=== PATIENT | male | born 1965 | race African-American/Black ===

== ENCOUNTER → 2021-05-05 | Outpatient (CLI) | payer MEDICARE ==
[~2021-05-05] MED LIST: HYDR-2997; HYDR1TAB PO; NAPR-243 PO
--- NOTE | 2021-05-05 10:13 | Diagnostic Imaging Report ---
CT Lung Screening INDICATION: 30 pack year smoking history. Current smoker. TECHNIQUE: Noncontrast, low-dose CT imaging performed according to the lung cancer screening protocol. Auto Exposure Controls were utilize during the CT exam to meet ALARA standards for radiation dose reduction. COMPARISON: Chest radiograph 11/08/2008. FINDINGS: Calcified granuloma in the right upper lobe. Calcified right hilar lymph nodes. Moderate centrilobular emphysema and diffuse bronchial wall thickening. No suspicious pulmonary nodule or mass. No endobronchial lesions. No lymphadenopathy. No pleural effusion or pneumothorax. Normal heart size. No pericardial effusion. No acute osseous findings. Calcified granulomas in the spleen. IMPRESSION: 1. No suspicious pulmonary nodule or mass. Recommend continue annual screening with low-dose chest CT in 12 months. 2. Moderate emphysematous changes. 3. Evidence of prior granulomatous infection. LUNG-RADS CATEGORY: 1 MODIFIER: None Dictated by: Dictated on workstation # [id number]
== END ==
LOC: RAD 09:24
PROVIDERS: ATTEND Nurse Practitioner
DX: Z12.2 Encounter for screening for malignant neoplasm of respiratory organs (principal); J43.9 Emphysema, unspecified; F17.210 Nicotine dependence, cigarettes, uncomplicated
CPT/HCPCS: 71271

== ENCOUNTER → 2021-06-09 | Outpatient (CLI) | payer MEDICARE ==
[~2021-06-09] MED LIST changes: +RT-ALBUTEROL SULF 2.5 MG/3 ML PRE-MIX VIAL INH ONE
== END ==
LOC: RT 09:15
PROVIDERS: ATTEND Nurse Practitioner
DX: J43.9 Emphysema, unspecified (principal)
CPT/HCPCS: 94060; 94726; 94729

== ENCOUNTER → 2021-06-27 | Outpatient (CLI) | payer MEDICARE ==
[~2021-06-27] MED LIST changes: -RT-ALBUTEROL SULF 2.5 MG/3 ML PRE-MIX VIAL INH ONE
== END ==
LOC: CARD 08:30
PROVIDERS: ATTEND Physician Assistant
DX: I35.1 Nonrheumatic aortic (valve) insufficiency (principal); I11.9 Hypertensive heart disease without heart failure
CPT/HCPCS: 93306

== ENCOUNTER → 2021-12-15 | Outpatient (CLI) | payer MEDICARE ==
[2021-12-15 10:35] VITALS: BP 132/90
--- NOTE | 2021-12-15 12:42 | Cardiology Stress Test Report ---
Stress Test Report Date of Procedure/Referring: Date of Procedure: Dec 15, 2021 [facility] Admitting Physician Admitting Physician: Attending Physician: Lyric Pacheco Indications: Baseline Heart Rate: 69 Baseline Blood Pressure: Blood Pressure Systolic: 132 Blood Pressure Diastolic: 90 Baseline EKG: Baseline EKG: NSR Summary/Conclusion: Summary: In summary, the patient started exercising with a baseline heart rate, blood pressure and EKG mentioned above Patient was able to exercise for a total of 6 minutes on Dexter protocol, METs 7.3 Maximum heart rate 146 Maximum blood pressure 185/72 Stress EKG, Minimal nondiagnostic changes Recovery EKG , Return to baseline Conclusion: 1. Good exercise tolerance for a total of 6 minutes on Dexter protocol, 7.3 METs, achieving 89 percent of maximum expected heart rate 2. Minimal nondiagnostic EKG changes with exercise returned to baseline during recovery 3. No arrhythmia was noted Copy Copies To 1: [facility] [place] CAROLEE CARABALLO MD Dec 15, 2021 12:42
== END ==
LOC: CARD 10:45
PROVIDERS: ATTEND Physician Assistant
DX: E78.2 Mixed hyperlipidemia (principal)
CPT/HCPCS: 93017

== ENCOUNTER 2022-09-12 07:28 | Emergency (ER) | payer MEDICARE ==
[~2022-09-12] VITALS: Ht 185 cm; Wt 110.0 kg
[2022-09-12] MEDS ORDERED: KETO10TA PO (07:58)
[2022-09-12] MEDS ORDERED: CYCL10TA25 PO (07:58)
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
[2022-09-12] MEDS ORDERED: KETOROLAC 15 MG/ML VIAL IM ONE (08:00)
[2022-09-12 08:05] VITALS: BP 143/94
== END 2022-09-12 08:05 | disposition home or self-care (01) ==
LOC: EDUNIT# 07:28 → ER 07:30
DX: M54.50 Low back pain, unspecified (principal); F17.210 Nicotine dependence, cigarettes, uncomplicated; Z91.148 Patient's other noncompliance with medication regimen for other reason
CPT/HCPCS: 99284